=== PATIENT | female | born 1950 | race Caucasian/White ===

== ENCOUNTER 2019-08-18 10:31 | Outpatient (RCR) | payer MEDICARE, OTHER, SELFPAY | END 2019-11-16 23:59 | disposition home or self-care (01) | LOC: ANHDMC 10:31 | PROVIDERS: PCP Internal Medicine; Visit Provider Surgery | DX: E10.8 Type 1 diabetes mellitus with unspecified complications (principal) | CPT/HCPCS: 99199 ==